=== PATIENT | male | born 1955 | race Caucasian/White ===

== ENCOUNTER → 2023-08-31 | Outpatient (CLI) | payer MEDICARE, BC, SELFPAY ==
[2023-08-31 12:06] LABS: Synovial Fld Mononuclear WBC # 3.777 10^3/ul; Synovial Fld Mononuclear WBC % 28.5 %; Synovial Fld Polynuclear WBC % 71.5 %
[2023-08-31 12:25] LABS: RBC /Synovial Fluid 0.005 10^6/uL (0)
[2023-08-31 13:34] LABS: Lymph 4 %; Monocyte /Synovial Fluid 9 %; Neutrophil 80 % (0-25); Plasma Cell /Synovial Fluid 7 %
[2023-08-31 13:53] LABS: AUTO B FLUID DILUENT BKGD CT WBC <0.1 RBC <0.01 (W<.1,R<.01); CRYSTALS, BODY FLUID NO CRYSTALS SEEN; Source- Body Fluid SYNOVIAL
[2023-08-31 13:54] LABS: Appearance /Synovial Fluid Turbid (CLEAR); Color / Synovial Fluid Yellow (Pale Yellow); Source / Synovial Fluid RIGHT KNEE; Viscosity / Synovial Fluid Mod. Viscous (HIGH)
[2023-08-31 13:57] LABS: Body Fluid QC Type(s) BF1Q,BF2Q
[2023-09-03 13:34] LABS: Pathologist Comment Reviewed
== END | disposition home or self-care (01) ==
PROVIDERS: PCP Internal Medicine; Referring Provider Physician Assistant; Visit Provider Physician Assistant
DX: M25.461 Effusion, right knee (principal); M25.561 Pain in right knee
CPT/HCPCS: 87070; 87075; 87205; 89050; 89051; 89060